=== PATIENT | male | born 1990 | race Caucasian/White ===

== ENCOUNTER 2018-05-13 10:12 | Emergency (ER) | payer SELFPAY ==
[2018-05-13 10:13] VITALS: BP 141/100; PULSE 99; RESP 18; TEMP 36.8; O2SAT 99; BMI 21.0
--- NOTE | 2018-05-13 11:07 | ED.DCSUM_ITS ---
- ER Visit Summary Date of Service: 05/13/18 Chief Complaint: [Cough and sore throat] History of Present Illness: The patient is a 28 M [presents the emergency department with symptoms ?6 days. Patient states that he started with a sore throat mostly to the right side of his throat 6 days ago. Patient had hot and cold flashes. Patient had a headache intermittently. Patient had ear pain bilaterally intermittently. Patient has had a cough that is productive of phlegm at times. Patient is a smoker and admits to daily marijuana use as well. He denies alcohol use.] Patient has a coworker that has similar symptoms. Physical Examination: [HEENT-PERRLA, EOMI. Cranial nerves II through XII grossly intact. TMs clear. Mucous membranes moist. No adenopathy. Mild diffuse pharyngeal erythema. No exudates. Uvula midline. No trismus. No significant adenopathy on exam. Cardiovascular-regular rate and rhythm without murmur or ectopy Lungs-clear to auscultation, chest wall stable without crepitus or subcu emphysema Abdomen-normoactive bowel sounds, soft, nontender, no rebound or rigidity, no peritoneal signs. Extremities-intact ?4, normal range of motion, normal pulses, atraumatic] Test Results: [Rapid strep screen was negative] Emergency Department Course and Treatment: [] Treatment Plan: [Patient will be started on Tessalon Perles and given a prescription for 10 [place] for pain] Disposition: [Discharged home in stable condition. Patient will be referred to primary care physician plant operations vice president for no doc for follow-up within next 5-7 days] Impression: [Viral URI] This note was generated with [employer] dictation software. It may contain incorrect words, spelling, and punctuation that were not noted in review of the chart prior to signing ED Disposition - Plan for ED Patient: Chief Complaint: Sore Throat Referrals: Care Physician,No Primary [Primary Care Provider] -
--- NOTE | 2018-05-13 11:09 | DCINST.ED_ITS ---
ED Disposition - Plan for ED Patient: Chief Complaint: Sore Throat Instructions: ED Pharyngitis Viral Prescriptions: Hydrocodone Bitart/Apap 5-325 [[place] 5MG-325MG] 1 tab PO Q6H PRN PRN 3 Days #10 tab PRN Reason: Pain Benzonatate [Tessalon Perle] 200 mg PO TID PRN PRN #20 cap PRN Reason: Cough Referrals: Care Physician,No Primary [Primary Care Provider] - Ebenezer Rebollar III, MD [STAFF PHYSICIAN] - 5-7 Days
[2018-05-13 11:24] VITALS: BP 116/77; PULSE 63; RESP 18; O2SAT 99
== END 2018-05-13 11:24 | disposition home or self-care (01) ==
LOC: ED 10:46
PROVIDERS: Emergency Provider Emergency Medicine
DX: J06.9 Acute upper respiratory infection, unspecified (principal); F17.200 Nicotine dependence, unspecified, uncomplicated; F12.90 Cannabis use, unspecified, uncomplicated
CPT/HCPCS: 87880; 99282

== ENCOUNTER 2018-12-29 11:51 | Emergency (ER) | payer SELFPAY ==
[2018-12-29 11:52] VITALS: BP 125/78; PULSE 84; RESP 16; TEMP 37.2; O2SAT 99; BMI 23.0
--- NOTE | 2018-12-29 12:26 | ED.DCSUM_ITS ---
- ER Visit Summary Date of Service: 12/29/18 Chief Complaint: [Dental pain] History of Present Illness: The patient is a 28 M [presents to the emergency department complaint of dental pain started yesterday. Patient states that he was eating a chip and thinks part of his tooth broke off. Patient has poor dentition and has an appointment with a dentist in 6 days. Patient woke up this morning in the right side of his face was swollen. He denies any fever. He rates his pain about a 5 or 6 out of 10. Physical Examination: [HEENT-PERRLA, EOMI. Cranial nerves II through XII grossly intact. TMs clear. Mucous membranes moist. No adenopathy. Dentition- patient has multiple broken and carried right upper premolars and canine with diffuse tenderness palpation over this area. Patient has gingival erythema but no discrete abscess or fluctuance noted. He does have some edema to the right side of his face with no facial cellulitis noted. Cardiovascular-regular rate and rhythm without murmur or ectopy Lungs-clear to auscultation, chest wall stable without crepitus or subcu emphysema Abdomen-normoactive bowel sounds, soft, nontender, no rebound or rigidity, no peritoneal signs. Extremities-intact ?4, normal range of motion, normal pulses, atraumatic] Test Results: [None indicated] Emergency Department Course and Treatment: [Patient was given a dose of clindamycin in the emergency department] Treatment Plan: [Patient will be given a prescription for clindamycin and naproxen. Patient advised to follow-up with his dentist] Disposition: [Discharged home in stable condition] Impression: [Dental pain secondary to dental caries Early dental abscess] This note was generated with [employer] dictation software. It may contain incorrect words, spelling, and punctuation that were not noted in review of the chart prior to signing ED Disposition - Plan for ED Patient: Referrals: Care Physician,No Primary [Primary Care Provider] -
--- NOTE | 2018-12-29 12:26 | ED.DEP ---
ED Disposition - Plan for ED Patient: Instructions: ED Tooth Pain, ED Abscess Dental Prescriptions: Naproxen [Naprosyn] 500 mg PO BID PRN #20 tab Clindamycin HCl [Cleocin] 300 mg PO Q6H #40 cap Referrals: Care Physician,No Primary [Primary Care Provider] - Additional Instructions: see a dentist
[2018-12-29 12:36] VITALS: TEMP 37.1
[2018-12-29] MEDS: Clindamycin HCl 150 MG Capsule 300 MG PO (12:41)
== END 2018-12-29 12:45 | disposition home or self-care (01) ==
PROVIDERS: Emergency Provider Emergency Medicine
DX: K02.9 Dental caries, unspecified (principal); K04.7 Periapical abscess without sinus; Z72.0 Tobacco use
CPT/HCPCS: 99283

== ENCOUNTER 2019-04-12 21:29 | Emergency (ER) | payer SELFPAY ==
[2019-04-12 21:30] VITALS: BP 110/64; PULSE 57; RESP 16; TEMP 36.7; O2SAT 99; BMI 24.3
--- NOTE | 2019-04-12 21:40 | ED.DCSUM_ITS ---
- ER Visit Summary Date of Service: 04/12/19 Chief Complaint: Abdominal pain History of Present Illness: The patient is a 29 M presenting with abdominal pain. Patient states this started 2 weeks ago. He has had nausea, vomiting, diarrhea. He denies blood in stool or emesis. Denies fever. He has had dec reased appetite. Denies other complaints. Physical Examination: Vitals are stable. Patient is afebrile. Alert no acute distress. HEENT exam is unremarkable. Neck is supple. Lungs are clear and equal bilaterally. Heart is regular rate and rhythm. Abdomen is soft mild left lower quadrant tenderness with no rebound or guarding Extremities are unremarkable. Skin is warm and dry. Remainder of exam is unremarkable. Emergency Department Course and Treatment: Patient was given IV fluids, Zofran. CBC, chemistries unremarkable. Liver enzymes unremarkable. CT abdomen pelvis shows moderate in severity pancolitis which could be infectious or inflammatory in etiology. Mild lymphadenopathy. On reevaluation, patient is resting comfo rtably. He is advised to follow-up with Dr. Kelley finisher fine diamond dies for no doc and Dr. Collado. Advised to return to the ED for worsening complaints. Disposition: Discharge home Impression: Abdominal pain, colitis This note was generated with [employer] dictation software. It may contain incorrect words, spelling, and punctuation that were not noted in review of the chart prior to signing ED Disposition - Plan for ED Patient: Instructions: ED Abdominal Pain Unkn Cause Prescriptions: Metronidazole [Flagyl] 500 mg PO Q8H #21 tablet Ciprofloxacin [Cipro] 500 mg PO BID #14 tablet Referrals: Meliton Kelley MD [STAFF PHYSICIAN] - Tera Collado MD [NON-STAFF] -
[2019-04-12] MEDS: 0.9% Normal Saline 1,000 ML 1000 ML IV (22:34)
[2019-04-12] MEDS: Ondansetron 4 MG/2 ML Vial IV (22:34)
[2019-04-12 22:36] LABS: Absolute Lymphocyte Count 2.34 X10^3/ul (0.83-4.51); Absolute Neutrophil Count 7.5 X10^3/uL (2.0-7.7); Basophil# 0.03 X10^3/uL; Basophil% 0.3 % (0-1); Eosinophil# 0.61 X10^3/uL; Eosinophils% 5.4 % (0-5); Hematocrit 40.3 % (40-54); Hemoglobin 13.6 g/dl (13.0-16.5); Lymphocyte # 2.34 X10^3/ul (4.0); Lymphocyte % 20.7 % (19-41); Mean Corp Hgb Conc 33.7 g/gl (32-36); Mean Corpuscular Hgb 30.3 pg (27.0-32.0); Mean Corpuscular Volume 89.8 fL (80-94); Mean Platelet Vol. 9.6 fl (6.2-12.0); Monocyte# 0.84 X10^3/uL; Monocyte% 7.4 % (0-10); Neutrophil # 7.45 X10^3/uL (2.7-7.7); Neutrophil % 66.1 % (47-70); Platelet Count 234 K/mm3 (150-450); RBC Distribution Width CV 13.6 % (11.6-14.6); RBC Distribution Width SD 44.8 fl (35.1-43.9); Red Blood Count 4.49 M/mm3 (4.6-6.2); White Blood Count 11.3 K/mm3 (4.4-11.0)
[2019-04-12 22:38] LABS: POSITIVE COUNT NO; POSITIVE DIFFERENTIAL NO; POSITIVE MORPHOLOGY NO
[2019-04-12 22:49] LABS: ALB/GLOB Ratio 1.2 RATIO (0.9-2.4); AST(SGOT) 12 U/L (15-37); Alanine Aminotransfer ALT/SGPT 16 U/L (16-61); Albumin, Serum 3.2 g/dL (3.2-5.0); Alkaline Phosphatase 43 U/L (45-117); Anion Gap 4 (5-15); BUN 11 mg/dL (7-18); BUN/Creat Ratio 12.7 RATIO (10-20); Calcium,Total 8.1 mg/dL (8.5-10.1); Chloride 110 mmol/L (98-107); Creatinine, Serum 0.86 mg/dL (0.70-1.30); EST Glomerular Filtration Rate 110 mL/min (>60); Est Glom Filt Rate - Afr Amer 133 mL/min (>60); Estimated Creatinine Clearance 137.86 ml/min; Globulin 2.7 g/dL (2.2-4.2); Glucose 105 mg/dL (74-106); Potassium 3.5 mmol/L (3.5-5.1); Protein, Total 5.9 g/dL (6.4-8.2); Sodium Level 142 mmol/L (136-145)
--- NOTE | 2019-04-12 22:59 | CT_ITS ---
HISTORY: SHARP PAINS ACROSS ABDOMEN AND DIARRHEA X 2 WEEKS BUT WORSE NOW EXAMINATION: CT Abdomen And Pelvis W/O Contrast TECHNIQUE: Helically acquired images were obtained of the abdomen and pelvis without oral or IV contrast as per renal stone protocol. A radiation dose optimization technique was used for this scan. IV Contrast dosage and agent: None. Oral contrast: None. COMPARISON: None FINDINGS: LOWER CHEST: Lung bases are clear. No cardiomegaly or pericardial effusion observed. LIVER: Homogeneous. No focal mass. GALLBLADDER AND BILIARY TREE: No calcified gallstones. There is no gallbladder distension or wall edema. No intra- or extrahepatic biliary ductal dilation. KIDNEYS AND URETERS: Normal renal size and position. There is no hydronephrosis or nephrolithiasis. ADRENAL GLANDS: Non-enlarged. SPLEEN: Normal size without focal cystic or solid mass. PANCREAS: No focal cystic or solid mass. BOWEL: Normal appendix. Moderate in severity diffuse pancolitis with diffuse colonic wall thickening and mild adjacent inflammation. Small bowel unremarkable. No obstruction. LYMPH NODES: Mild mesenteric lymphadenopathy particularly adjacent to the inflamed colon. PERITONEUM: Trace simple density fluid in the pelvis. No free air or extraluminal air. VESSELS: Aorta is non-dilated. URINARY BLADDER: Unremarkable. REPRODUCTIVE ORGANS: No pelvic masses. ABDOMINAL WALL: No discrete abdominal or pelvic wall hernia observed. BONES: No lytic or blastic abnormality observed. CT/Abdomen/Pelvis without Cont IMPRESSION: Moderate in severity pancolitis which could be infectious or inflammatory in etiology. Mild lymphadenopathy. Individualized dose optimization techniques were used for this CT. at 2331 Reported and signed by: Mau Hernandez MD Electronically Signed: Mau Hernandez, at 23:30 EDT Tel , Service support ,
--- NOTE | 2019-04-12 23:37 | ED.DEP ---
ED Disposition - Plan for ED Patient: Instructions: ED Abdominal Pain Unkn Cause Prescriptions: Metronidazole [Flagyl] 500 mg PO Q8H #21 tablet Ciprofloxacin [Cipro] 500 mg PO BID #14 tablet Referrals: Meliton Kelley MD [STAFF PHYSICIAN] - Tera Collado MD [NON-STAFF] -
[2019-04-12] MEDS: metroNIDAZOLE 500 MG Tablet PO (23:54)
[2019-04-12] MEDS: Ciprofloxacin 500 MG Tablet PO (23:54)
[2019-04-12 23:57] VITALS: BP 119/84; PULSE 84; RESP 16; TEMP 37; O2SAT 98
== END 2019-04-13 | disposition home or self-care (01) ==
LOC: ED 22:05
PROVIDERS: Emergency Provider Emergency Medicine
DX: K52.9 Noninfective gastroenteritis and colitis, unspecified (principal); Z72.0 Tobacco use
CPT/HCPCS: 74176; 80053; 85025; 96361; 96374; 99283; J7030; A4216; J2405